=== PATIENT | female | born 1995 | race Caucasian/White ===

== ENCOUNTER → 2017-03-20 | Day surgery (SDC) | payer BC ==
[~2017-03-20] MED LIST: NO MEDICATIONS
--- NOTE | ~2017-03-20 | OR ---
Unit #: [id number] #: [id number] Patient: JESUSITA VERDUGO [id number] [address] [address] [id number] O MR#: [id number] NAME: JESUSITA VERDUGO. ROOM: Date of Procedure: 03/20/2017 Admission Date: 03/20/2017 Surgeon: Víctor Farrar M.D. : 1995 Attending Physician: Víctor Farrar M.D. OPERATIVE REPORT PREOPERATIVE DIAGNOSES 1. Recurrent tonsillitis. 2. Tonsillar hypertrophy. POSTOPERATIVE DIAGNOSES 1. Recurrent tonsillitis. 2. Tonsillar hypertrophy. PROCEDURE PERFORMED Tonsillectomy. ANESTHESIA General endotracheal anesthesia. COMPLICATIONS There were none. FINDINGS Included tonsillar hypertrophy. HISTORY This is a 21-year-old female, who has had a history of recurrent tonsillitis. She presents today for tonsillectomy. DESCRIPTION OF PROCEDURE The patient was placed supine on the operating table. Anesthesia was achieved by general endotracheal anesthesia. The patient was prepped and draped for tonsillectomy. The palate was palpated. There was no submucous cleft noted. Mouth gag was placed. Tonsils were dissected in an extracapsular fashion first on the right and then on the left with Bovie cautery. All bleeders were cauterized. All apparatus was removed. The patient was awakened and transferred to recovery in stable condition. Dictated by... Freddie Pierre/mic TD: 03/21/2017 18:48 JOB #: [id number] Unit #: [id number] #: [id number] Patient: JESUSITA VERDUGO OPERATIVE REPORT Page 1 of 1 X Víctor Farrar MD PROCEDURE OPERATIVE NOTE
== END | disposition home or self-care (01) ==
LOC: CSUR 07:37
DX: J35.01 Chronic tonsillitis (principal); A42.9 Actinomycosis, unspecified; K08.409 Partial loss of teeth, unspecified cause, unspecified class; Z88.5 Allergy status to narcotic agent; Z98.890 Other specified postprocedural states; Z87.440 Personal history of urinary (tract) infections
CPT/HCPCS: 84703; 88304; J1100; J2250; J2405; J2550; J2710; J3010